=== PATIENT | female | born 1980 | race Caucasian/White ===

== ENCOUNTER 2018-12-23 19:46 | Emergency (ER) | payer MEDICAID, OTHER ==
[~2018-12-23] VITALS: Ht 172.7 cm; Wt 66.3 kg
[2018-12-23 21:13] VITALS: BP 128/76
[2018-12-23] MEDS ORDERED: PROC-8 PO (21:14)
[2018-12-23] MEDS ORDERED: ketorolac trometh inj. 60 MG/2 ML VIAL IM ONE (21:15)
[2018-12-23] MEDS ORDERED: proCHLORperazine 10mg tablet PO ONE (21:15)
== END 2018-12-23 21:29 | disposition home or self-care (01) ==
LOC: ER 19:48 → EDBD 19:48 → ER 21:29
DX: G44.209 Tension-type headache, unspecified, not intractable (principal); F17.200 Nicotine dependence, unspecified, uncomplicated; F15.90 Other stimulant use, unspecified, uncomplicated; Z88.0 Allergy status to penicillin; Z91.040 Latex allergy status; Z79.899 Other long term (current) drug therapy; Z86.711 Personal history of pulmonary embolism; Z98.890 Other specified postprocedural states
CPT/HCPCS: 96372; 99283; J1885; Q0164

== ENCOUNTER 2019-04-15 22:27 | Emergency (ER) | payer MEDICAID ==
[~2019-04-15] VITALS: Ht 172.7 cm; Wt 65.9 kg
[~2019-04-15 22:27] MED LIST: PROC-8 PO
[2019-04-15] MEDS ORDERED: ondansetron/PF 4mg/2ml inj IV ONE (23:00)
[2019-04-15] MEDS ORDERED: morphine 4 MG/ML inj SYRINge IV ONE (23:00)
[2019-04-15 23:02] LABS: BASOPHILS # (AUTO) 0.1 X10'3 (0-0.2); BASOPHILS % (AUTO) 0.9 % (0-1); EOSINOPHILS # (AUTO) 0.4 X10'3 (0-0.9); EOSINOPHILS % (AUTO) 2.7 % (0-6); HEMATOCRIT 38.9 % (35.0-45.0); HEMOGLOBIN 12.8 g/dl (12.0-16.0); LYMPHOCYTES % (AUTO) 41.2 % (21-51); MEAN CORPUSCULAR HEMOGLOBIN 27.6 PG (27.0-31.0); MEAN CORPUSCULAR VOLUME 83.5 FL (78-98); MEAN PLATELET VOLUME 8.9 FL (7.4-10.4); MONOCYTES # (AUTO) 1.5 X10'3 (0-0.9); MONOCYTES % (AUTO) 10.4 % (2-12); NEUTROPHILS # (AUTO) 6.5 X10'3 (1.8-7.7); NEUTROPHILS % (AUTO) 44.8 % (42-75); PLATELET COUNT 319 X10'3 (140-440); RED BLOOD COUNT 4.66 X10'6 (4.20-5.60); RED CELL DISTRIBUTION WIDTH 14.1 % (11.5-14.5); WHITE BLOOD COUNT 14.5 X10'3 (4.5-11.0)
[2019-04-15 23:11] LABS: PARTIAL THROMBOPLASTIN TIME 23 SECONDS (22-32)
[2019-04-15 23:15] LABS: ALANINE AMINOTRANSFERASE 26 U/L (12-78); ALBUMIN 3.5 G/DL (3.4-5.0); ALBUMIN/GLOBULIN RATIO 0.8 (1.1-1.5); ALKALINE PHOSPHATASE 108 IU/L (46-116); ANION GAP 10 (8-16); ASPARTATE AMINO TRANSFERASE 18 U/L (10-37); BILIRUBIN,TOTAL 0.3 MG/DL (0.1-1.0); BLOOD UREA NITROGEN 15 MG/DL (7-18); BUN/CREATININE RATIO 22.4 (6.6-38.0); CALCIUM 9.2 MG/DL (8.5-10.1); CHLORIDE 104 MMOL/L (99-107); CREATININE 0.67 MG/DL (0.40-0.90); GLUCOSE 107 MG/DL (70-104); POTASSIUM 3.9 MMOL/L (3.5-5.1); SODIUM 140 MMOL/L (135-145); TOTAL CARBON DIOXIDE 26.3 MMOL/L (24-32); TOTAL PROTEIN 7.8 G/DL (6.4-8.2); eGFR > 90 ML/MIN
[2019-04-15 23:16] LABS: LIPASE 164 U/L (73-393)
[2019-04-15] MEDS ORDERED: iohexol 350MG/ML 100ml bottle IV ONE (23:21)
[2019-04-16 00:14] VITALS: BP 114/64
== END 2019-04-16 00:20 | disposition home or self-care (01) ==
LOC: ER 22:28
DX: R07.81 Pleurodynia (principal); E27.9 Disorder of adrenal gland, unspecified; F17.200 Nicotine dependence, unspecified, uncomplicated; Z86.711 Personal history of pulmonary embolism; Z90.89 Acquired absence of other organs; Z88.0 Allergy status to penicillin; Z91.040 Latex allergy status
CPT/HCPCS: 36415; 71045; 71275; 80053; 83690; 84484; 85025; 85610; 85730; 93005; 96374; 96375; 99284; J2270; J2405; Q9967

== ENCOUNTER 2019-06-10 16:04 | Emergency (ER) | payer MEDICAID ==
[~2019-06-10] VITALS: Ht 172.7 cm; Wt 68.9 kg
[2019-06-10] MEDS ORDERED: normal saline 1000ML IV soln IVB ONE (16:20)
[2019-06-10 16:25] LABS: CLARITY,URINE SLIGHTLY CLOUDY (Clear); COLOR,URINE STRAW (Yellow); GLUCOSE, URINE NEGATIVE (Neg); KETONES,URINE NEGATIVE (Neg); LEUKOCYTE ESTERASE ,URINE TRACE (Neg); NITRITES, URINE POSITIVE (Neg); OCCULT BLOOD,URINE NEGATIVE (Neg); PH,URINE 6.5 (4.8-8.0); PROTEIN,URINE NEGATIVE (Neg); UA COLLECTION TYPE CLN CATCH MIDSTREAM; URINE HCG NEGATIVE (NEG); UROBILINOGEN,URINE 0.2 E.U/dL (0.2-1.0)
[2019-06-10] MEDS ORDERED: ondansetron/PF 4mg/2ml inj IV ONE (16:25)
[2019-06-10] MEDS ORDERED: morphine 4 MG/ML inj SYRINge IV ONE (16:25)
[2019-06-10 16:30] LABS: BACTERIA,URINE 4+ /HPF (Neg); MUCUS STRANDS NONE SEEN /LPF (Neg); RBC,URINE 0-2 /HPF (0-2); SQUAMOUS EPITHELIAL CELL,UR MODERATE /LPF (FEW); TRANSITIONAL EPI CELLS,URINE FEW /HPF; WBC,URINE 0-4 /HPF (0-4)
[2019-06-10 16:57] LABS: BASOPHILS # (AUTO) 0.2 X10'3 (0-0.2); BASOPHILS % (AUTO) 1.4 % (0-1); EOSINOPHILS # (AUTO) 0.6 X10'3 (0-0.9); EOSINOPHILS % (AUTO) 4.5 % (0-6); HEMATOCRIT 38.4 % (35.0-45.0); HEMOGLOBIN 12.8 g/dl (12.0-16.0); LYMPHOCYTES # (AUTO) 5.4 X10'3 (1.1-4.8); LYMPHOCYTES % (AUTO) 43.9 % (21-51); MEAN CORPUSCULAR HEMOGLOBIN 28.1 PG (27.0-31.0); MEAN CORPUSCULAR HGB CONC 33.2 g/dL (33.0-36.5); MEAN CORPUSCULAR VOLUME 84.7 FL (78-98); MEAN PLATELET VOLUME 8.9 FL (7.4-10.4); MONOCYTES # (AUTO) 1.4 X10'3 (0-0.9); MONOCYTES % (AUTO) 11.6 % (2-12); NEUTROPHILS # (AUTO) 4.7 X10'3 (1.8-7.7); NEUTROPHILS % (AUTO) 38.6 % (42-75); PLATELET COUNT 305 X10'3 (140-440); RED BLOOD COUNT 4.54 X10'6 (4.20-5.60); RED CELL DISTRIBUTION WIDTH 14.2 % (11.5-14.5); WHITE BLOOD COUNT 12.3 X10'3 (4.5-11.0)
--- NOTE | 2019-06-10 16:59 | NUR ---
break note:patient on bed pain to left flank 3/10,visitor at [facility],we will monitor.
--- NOTE | 2019-06-10 17:02 | NUR ---
PATIENT TO CT.
[2019-06-10 17:10] LABS: ALANINE AMINOTRANSFERASE 18 U/L (12-78); ALBUMIN 3.4 G/DL (3.4-5.0); ALBUMIN/GLOBULIN RATIO 0.9 (1.1-1.5); ALKALINE PHOSPHATASE 90 IU/L (46-116); ANION GAP 9 (8-16); ASPARTATE AMINO TRANSFERASE 18 U/L (10-37); BILIRUBIN,TOTAL 0.1 MG/DL (0.1-1.0); BLOOD UREA NITROGEN 8 MG/DL (7-18); BUN/CREATININE RATIO 12.5 (6.6-38.0); CALCIUM 8.8 MG/DL (8.5-10.1); CHLORIDE 106 MMOL/L (99-107); CREATININE 0.64 MG/DL (0.40-0.90); GLUCOSE 101 MG/DL (70-104); LIPASE 145 U/L (73-393); SODIUM 140 MMOL/L (135-145); TOTAL CARBON DIOXIDE 24.8 MMOL/L (24-32); TOTAL PROTEIN 7.2 G/DL (6.4-8.2); eGFR > 90 ML/MIN
[2019-06-10] MEDS ORDERED: CefTRIAXone/D5W-Rocephin 1gm 50 ML IV ONE (17:35)
[2019-06-10] MEDS ORDERED: SULF1TAB49 PO (17:37)
[2019-06-10] MEDS ORDERED: HYDR-3965 PO (17:44)
[2019-06-10 18:34] VITALS: BP 117/74
== END 2019-06-10 18:36 | disposition home or self-care (01) ==
LOC: ER 16:05
DX: N39.0 Urinary tract infection, site not specified (principal); Z98.890 Other specified postprocedural states; Z86.711 Personal history of pulmonary embolism; Z88.0 Allergy status to penicillin; Z91.040 Latex allergy status; Z79.2 Long term (current) use of antibiotics
CPT/HCPCS: 36415; 74176; 80053; 81001; 81025; 83690; 84145; 85025; 87077; 87088; 87186; 96365; 96375; 99284; J0696; J2270; J2405; J7030

== ENCOUNTER 2019-07-21 20:32 | Emergency (ER) | payer MEDICAID ==
[~2019-07-21] VITALS: Ht 172.7 cm; Wt 67.3 kg
[2019-07-21 20:59] LABS: URINE HCG NEGATIVE (NEG)
[2019-07-21 21:02] LABS: CLARITY,URINE SLIGHTLY CLOUDY (Clear); COLOR,URINE YELLOW (Yellow); GLUCOSE, URINE NEGATIVE (Neg); KETONES,URINE NEGATIVE (Neg); LEUKOCYTE ESTERASE ,URINE SMALL (Neg); NITRITES, URINE NEGATIVE (Neg); OCCULT BLOOD,URINE TRACE-INTACT (Neg); PROTEIN,URINE 30 mg/dl (Neg); UROBILINOGEN,URINE 0.2 E.U/dL (0.2-1.0)
[2019-07-21 21:09] LABS: UA COLLECTION TYPE CLN CATCH MIDSTREAM
[2019-07-21 21:10] LABS: BACTERIA,URINE FEW /HPF (Neg); MUCUS STRANDS MANY /LPF (Neg); RBC,URINE 0-2 /HPF (0-2); SQUAMOUS EPITHELIAL CELL,UR FEW /LPF (FEW)
--- NOTE | 2019-07-21 22:05 | NUR ---
Pt ready for Pelvic exam with provider
[2019-07-21] MEDS ORDERED: PHEN-824 PO (23:18)
[2019-07-21] MEDS ORDERED: CEPH250T PO (23:18)
[2019-07-21] MEDS ORDERED: MICO45CR11 VG (23:19)
[2019-07-21] MEDS ORDERED: phenazopyridine 100mg tablet PO ONE (23:20)
[2019-07-21] MEDS ORDERED: cephalexin 250mg capsule PO ONE (23:20)
[2019-07-21 23:31] VITALS: BP 129/64
== END 2019-07-21 23:30 | disposition home or self-care (01) ==
LOC: ER 20:33
DX: N39.0 Urinary tract infection, site not specified (principal); Z87.01 Personal history of pneumonia (recurrent); Z86.711 Personal history of pulmonary embolism; Z87.442 Personal history of urinary calculi; Z90.89 Acquired absence of other organs; Z88.0 Allergy status to penicillin; Z91.040 Latex allergy status
CPT/HCPCS: 36415; 81001; 81025; 87088; 87210; 87491; 99283

== ENCOUNTER 2019-08-31 12:36 | Day surgery (SDC) | payer MEDICAID ==
[2019-08-28 16:00] LABS: BASOPHILS # (AUTO) 0.1 X10'3 (0-0.2); BASOPHILS % (AUTO) 1.1 % (0-1); EOSINOPHILS # (AUTO) 0.3 X10'3 (0-0.9); EOSINOPHILS % (AUTO) 2.7 % (0-6); LYMPHOCYTES # (AUTO) 4.3 X10'3 (1.1-4.8); MEAN CORPUSCULAR HEMOGLOBIN 29.5 PG (27.0-31.0); MEAN CORPUSCULAR HGB CONC 34.1 g/dL (33.0-36.5); MEAN CORPUSCULAR VOLUME 86.5 FL (78-98); MONOCYTES # (AUTO) 0.9 X10'3 (0-0.9); MONOCYTES % (AUTO) 9.5 % (2-12); NEUTROPHILS # (AUTO) 3.8 X10'3 (1.8-7.7); NEUTROPHILS % (AUTO) 40.7 % (42-75); PRE OP HEMATOCRIT 39.2 % (35.0-45.0); PRE OP HEMOGLOBIN 13.4 g/dL (12.0-16.0); PRE OP PLATELET COUNT 320 X10'3 (140-440); RED BLOOD COUNT 4.53 X10'6 (4.20-5.60); RED CELL DISTRIBUTION WIDTH 13.6 % (11.5-14.5)
[2019-08-28 16:02] LABS: CLARITY,URINE SLIGHTLY CLOUDY (Clear); COLOR,URINE YELLOW (Yellow); GLUCOSE, URINE NEGATIVE (Neg); KETONES,URINE NEGATIVE (Neg); LEUKOCYTE ESTERASE ,URINE SMALL (Neg); NITRITES, URINE POSITIVE (Neg); OCCULT BLOOD,URINE SMALL (Neg); PROTEIN,URINE NEGATIVE (Neg); UROBILINOGEN,URINE 0.2 E.U/dL (0.2-1.0)
[2019-08-28 16:15] LABS: ALBUMIN 3.9 G/DL (3.4-5.0); ALBUMIN/GLOBULIN RATIO 1.1 (1.1-1.5); ALKALINE PHOSPHATASE 87 IU/L (46-116); BLOOD UREA NITROGEN 6 MG/DL (7-18); BUN/CREATININE RATIO 9.4 (6.6-38.0); CALCIUM 8.9 MG/DL (8.5-10.1); CHLORIDE 105 MMOL/L (99-107); CREATININE 0.64 MG/DL (0.40-0.90); PRE OP ALT 21 U/L (30-65); PRE OP ANION GAP 10 (8-16); PRE OP AST 18 U/L (10-37); PRE OP BILIRUB, TOTAL 0.3 MG/DL (0.0-1.0); PRE OP GLUCOSE 114 MG/DL (70-104); PRE OP POTASSIUM 3.6 MMOL/L (3.4-5.1); PRE OP SODIUM 140 MMOL/L (135-145); TOTAL CARBON DIOXIDE 25.5 MMOL/L (24-32); TOTAL PROTEIN 7.5 G/DL (6.4-8.2); eGFR > 90 ML/MIN
[2019-08-28 16:44] LABS: HCG SERUM QL NEGATIVE
[2019-08-28 16:45] LABS: UA COLLECTION TYPE NON-SPECIFIED
[2019-08-28 16:46] LABS: BACTERIA,URINE 4+ /HPF (Neg); RBC,URINE 0-2 /HPF (0-2); SQUAMOUS EPITHELIAL CELL,UR FEW /LPF (FEW); WBC CLUMPS,URINE FEW /HPF (NEGATIVE); WBC,URINE 20-30 /HPF (0-4)
[~2019-08-31] VITALS: Ht 172.7 cm; Wt 66.0 kg
[2019-08-31] VITALS (8 sets, daily range): BP systolic 109–149; BP diastolic 61–90
[~2019-08-31 12:36] MED LIST changes: +NO HOME MEDS; -PROC-8 PO; +clindamycin-Cleocin 900mg/D5W 50 ML IV ONE; +famotidine 20mg tablet PO ONE; +ringers solution, lacted 1,000 ML IV SCH
[2019-08-31] MEDS ORDERED: gentamicin inj 325 MG in normal saline 100ml IV soln 91.875 ML IV ONE (14:00)
[2019-08-31] MEDS ORDERED: BUPIVAcaine/PF 2.5 mg/ml (0.25%) 30ml vial ONE (15:13)
[2019-08-31] MEDS ORDERED: BUPIVAcaine/PF 2.5mg/ml (0.25%) 10ml vial ONE (15:14)
[2019-08-31] MEDS ORDERED: ringers solution, lacted 1,000 ML IV SCH (15:29)
[2019-08-31] MEDS ORDERED: morphine 4 MG/ML inj SYRINge IV PRN (15:30)
[2019-08-31] MEDS ORDERED: acetaminophen 1,000mg/100ml IV 100 ML IV PRN (15:30)
[2019-08-31] MEDS ORDERED: morphine 2 MG/ML inj. syringe IV PRN (15:30)
[2019-08-31] MEDS ORDERED: meperidine/PF 25mg/ml syringe IV PRN ×3 (15:30)
[2019-08-31] MEDS ORDERED: ondansetron/PF 4mg/2ml inj IV PRN (15:30)
[2019-08-31] MEDS ORDERED: proCHLORperazine 10 MG/2 ml inj IV PRN (15:30)
[2019-08-31] MEDS ORDERED: midazolam 2 mg/2 ml injection ONE (16:17)
[2019-08-31] MEDS ORDERED: diphenhydrAMINE 50 mg/ml inj ONE (16:27)
[2019-08-31] MEDS ORDERED: propofol inj 20 ML IV ONE (16:27)
[2019-08-31] MEDS ORDERED: LIDOcaine 2% (20mg/ml) 5ml vial ONE (16:27)
[2019-08-31] MEDS ORDERED: glycopyrrolate 0.2mg/ml inj ONE ×2 (16:27→16:49)
[2019-08-31] MEDS ORDERED: neostigmine methylsulfate 1 MG/ML 10ml vial ONE ×2 (16:27→16:49)
[2019-08-31] MEDS ORDERED: rocuronium 10mg/ml inj IV ONE (16:27)
[2019-08-31] MEDS ORDERED: fentaNYL/PF 50MCG/1 ML 2ML syringe ONE (16:27)
--- NOTE | 2019-08-31 16:59 | NUR ---
Received from OR via bettye, accompanied by Anesthesiologist IDANIA and report given by Anesthesiolgist. Lap sites x2 open to air derma maradiaga CDI. 20G right AC LR IVF at 100cc/hr. VS WNL and mask to 10L sats 98%. Maria Del Carmen pad in place scant drainage. Will monitor closely.
--- NOTE | 2019-08-31 18:09 | NUR ---
Pt states 5/10 is tolerable for her and she would prefer not to receive any more IV pain meds and go home to be more comfortable and start PO pain meds. Pt ambulated and tolerated fluids, up getting dressed at this time.
--- NOTE | 2019-08-31 18:19 | NUR ---
All belongings returned to patient.
--- NOTE | 2019-08-31 18:19 | NUR ---
Pt discharged to vehicle by wheelchair without incident. Pt alert and oriented, she and S/O verbalized understanding of discharge instructions. IV dc'd, abd sites remain CDI and open to air. Pt already has pain medications at home and knows to follow per MD orders.
== END 2019-08-31 18:19 | disposition home or self-care (01) ==
LOC: PAS 12:36
PROVIDERS: ATTEND Obstetrics & Gynecology Obstetrics
DX: Z30.2 Encounter for sterilization (principal); F17.210 Nicotine dependence, cigarettes, uncomplicated; Z90.81 Acquired absence of spleen; Z98.890 Other specified postprocedural states; Z88.0 Allergy status to penicillin; Z87.01 Personal history of pneumonia (recurrent); Z87.442 Personal history of urinary calculi; Z91.040 Latex allergy status; Z79.899 Other long term (current) drug therapy
CPT/HCPCS: 36415; 58671; 71046; 80053; 81001; 84703; 85025; 86885; 86900; 86901; 87077; 87088; 87186; A4264; J0131; J1200; J1580; J2001; J2175; J2250; J2270; J2704; J2710; J3010; J3490; A4618; A7000; J7120

== ENCOUNTER 2020-03-01 20:03 | Emergency (ER) | payer MEDICAID ==
[~2020-03-01] VITALS: Ht 172.7 cm; Wt 78.0 kg
[~2020-03-01 20:03] MED LIST changes: -clindamycin-Cleocin 900mg/D5W 50 ML IV ONE; -famotidine 20mg tablet PO ONE; -ringers solution, lacted 1,000 ML IV SCH
[2020-03-01 20:27] LABS: CLARITY,URINE CLEAR (Clear); COLOR,URINE YELLOW (Yellow); GLUCOSE, URINE NEGATIVE (Neg); KETONES,URINE NEGATIVE (Neg); LEUKOCYTE ESTERASE ,URINE NEGATIVE (Neg); NITRITES, URINE NEGATIVE (Neg); OCCULT BLOOD,URINE TRACE-INTACT (Neg); PROTEIN,URINE NEGATIVE (Neg); UROBILINOGEN,URINE 0.2 E.U/dL (0.2-1.0)
[2020-03-01 20:34] LABS: BACTERIA,URINE FEW /HPF (Neg); RBC,URINE 0-2 /HPF (0-2); SQUAMOUS EPITHELIAL CELL,UR FEW /LPF (FEW); UA COLLECTION TYPE CLN CATCH MIDSTREAM; WBC,URINE 0-4 /HPF (0-4)
[2020-03-01 21:02] LABS: BASOPHILS # (AUTO) 0.2 X10'3 (0-0.2); BASOPHILS % (AUTO) 1.3 % (0-1); EOSINOPHILS # (AUTO) 0.3 X10'3 (0-0.9); EOSINOPHILS % (AUTO) 2.6 % (0-6); HEMATOCRIT 38.2 % (35.0-45.0); HEMOGLOBIN 12.8 g/dl (12.0-16.0); LYMPHOCYTES # (AUTO) 4.7 X10'3 (1.1-4.8); LYMPHOCYTES % (AUTO) 35.5 % (21-51); MEAN CORPUSCULAR HEMOGLOBIN 29.7 PG (27.0-31.0); MEAN CORPUSCULAR HGB CONC 33.5 g/dL (33.0-36.5); MEAN CORPUSCULAR VOLUME 88.7 FL (78-98); MEAN PLATELET VOLUME 9.1 FL (7.4-10.4); MONOCYTES # (AUTO) 1.2 X10'3 (0-0.9); MONOCYTES % (AUTO) 9.4 % (2-12); NEUTROPHILS # (AUTO) 6.7 X10'3 (1.8-7.7); NEUTROPHILS % (AUTO) 51.2 % (42-75); PLATELET COUNT 378 X10'3 (140-440); RED BLOOD COUNT 4.31 X10'6 (4.20-5.60); RED CELL DISTRIBUTION WIDTH 13.2 % (11.5-14.5); WHITE BLOOD COUNT 13.1 X10'3 (4.5-11.0)
[2020-03-01 21:16] LABS: ALANINE AMINOTRANSFERASE 21 U/L (12-78); ALBUMIN 3.7 G/DL (3.4-5.0); ALBUMIN/GLOBULIN RATIO 0.9 (1.1-1.5); ALKALINE PHOSPHATASE 70 IU/L (46-116); ANION GAP 9 (8-16); ASPARTATE AMINO TRANSFERASE 16 U/L (10-37); BILIRUBIN,TOTAL 0.2 MG/DL (0.1-1.0); BLOOD UREA NITROGEN 7 MG/DL (7-18); BUN/CREATININE RATIO 7.3 (6.6-38.0); CALCIUM 8.7 MG/DL (8.5-10.1); CHLORIDE 104 MMOL/L (99-107); CREATININE 0.96 MG/DL (0.40-0.90); GLUCOSE 88 MG/DL (70-104); LIPASE 117 U/L (73-393); POTASSIUM 3.6 MMOL/L (3.5-5.1); SODIUM 140 MMOL/L (135-145); TOTAL CARBON DIOXIDE 27.5 MMOL/L (24-32); TOTAL PROTEIN 7.7 G/DL (6.4-8.2); eGFR 65 ML/MIN
[2020-03-01] MEDS ORDERED: ketorolac tromethamine 15mg/ml inj. IM ONE (22:00)
--- NOTE | 2020-03-01 22:48 | NUR ---
[facility] IS ON THEIR WAY IN
[2020-03-01] MEDS ORDERED: FLO0.4C PO (23:51)
[2020-03-01] MEDS ORDERED: IBUP-1986 PO (23:51)
[2020-03-01] MEDS ORDERED: ONDA4TAB6 PO (23:51)
[2020-03-01 23:58] VITALS: BP 124/70
== END 2020-03-02 00:02 | disposition home or self-care (01) ==
LOC: ER 20:04
DX: N23 Unspecified renal colic (principal); R31.9 Hematuria, unspecified; M54.89 Other dorsalgia; R11.0 Nausea; Z87.01 Personal history of pneumonia (recurrent); Z86.711 Personal history of pulmonary embolism; Z87.442 Personal history of urinary calculi; Z87.440 Personal history of urinary (tract) infections; Z98.890 Other specified postprocedural states; Z88.0 Allergy status to penicillin; Z91.040 Latex allergy status; Z79.899 Other long term (current) drug therapy
CPT/HCPCS: 36415; 76775; 80053; 81001; 83690; 85025; 96372; 99284; J1885

== ENCOUNTER 2020-08-18 15:38 | Emergency (ER) | payer MEDICAID ==
[~2020-08-18] VITALS: Ht 172.7 cm; Wt 80.9 kg
[~2020-08-18 15:38] MED LIST changes: +IBUP-1986 PO; +ONDA4TAB6 PO
[2020-08-18 15:43] VITALS: BP 148/84
== END 2020-08-18 17:39 | disposition home or self-care (01) ==
LOC: ER 15:38
DX: S61.216A Laceration without foreign body of right little finger without damage to nail, initial encounter (principal); Z88.0 Allergy status to penicillin; Z91.040 Latex allergy status; Z79.899 Other long term (current) drug therapy; Z87.01 Personal history of pneumonia (recurrent); Z86.711 Personal history of pulmonary embolism; Z90.49 Acquired absence of other specified parts of digestive tract; Z87.440 Personal history of urinary (tract) infections; Z87.442 Personal history of urinary calculi; W26.0XXA Contact with knife, initial encounter; Y93.89 Activity, other specified; Y92.89 Other specified places as the place of occurrence of the external cause; Y99.8 Other external cause status
CPT/HCPCS: 12001; 99282

== ENCOUNTER 2020-11-11 19:57 | Emergency (ER) | payer MEDICAID ==
[~2020-11-11] VITALS: Ht 172.7 cm; Wt 80.9 kg
[2020-11-11 20:15] VITALS: BP 141/90
[2020-11-11 20:36] LABS: BASOPHILS # (AUTO) 0.2 X10'3 (0-0.2); BASOPHILS % (AUTO) 1.4 % (0-1); EOSINOPHILS # (AUTO) 0.4 X10'3 (0-0.9); EOSINOPHILS % (AUTO) 2.8 % (0-6); HEMATOCRIT 40.2 % (35.0-45.0); HEMOGLOBIN 13.4 g/dl (12.0-16.0); LYMPHOCYTES # (AUTO) 4.8 X10'3 (1.1-4.8); MEAN CORPUSCULAR HEMOGLOBIN 30.3 PG (27.0-31.0); MEAN CORPUSCULAR HGB CONC 33.4 g/dL (33.0-36.5); MEAN PLATELET VOLUME 8.7 FL (7.4-10.4); MONOCYTES # (AUTO) 1.1 X10'3 (0-0.9); NEUTROPHILS # (AUTO) 8.5 X10'3 (1.8-7.7); NEUTROPHILS % (AUTO) 56.8 % (42-75); PLATELET COUNT 407 X10'3 (140-440); RED BLOOD COUNT 4.41 X10'6 (4.20-5.60); RED CELL DISTRIBUTION WIDTH 13.7 % (11.5-14.5)
[2020-11-11 20:39] LABS: CLARITY,URINE CLEAR (Clear); COLOR,URINE YELLOW (Yellow); GLUCOSE, URINE NEGATIVE (Neg); KETONES,URINE NEGATIVE (Neg); LEUKOCYTE ESTERASE ,URINE TRACE (Neg); NITRITES, URINE NEGATIVE (Neg); OCCULT BLOOD,URINE TRACE-INTACT (Neg); PROTEIN,URINE NEGATIVE (Neg); UROBILINOGEN,URINE 0.2 E.U/dL (0.2-1.0)
[2020-11-11 20:40] LABS: UA COLLECTION TYPE CLN CATCH MIDSTREAM; URINE HCG NEGATIVE (NEG)
[2020-11-11 20:48] LABS: ALANINE AMINOTRANSFERASE 14 U/L (12-78); ALBUMIN 3.8 G/DL (3.4-5.0); ALBUMIN/GLOBULIN RATIO 0.9 (1.1-1.5); ALKALINE PHOSPHATASE 72 IU/L (46-116); ANION GAP 8 (8-16); ASPARTATE AMINO TRANSFERASE 13 U/L (10-37); BILIRUBIN,TOTAL 0.2 MG/DL (0.1-1.0); BLOOD UREA NITROGEN 10 MG/DL (7-18); CALCIUM 8.9 MG/DL (8.5-10.1); CHLORIDE 104 MMOL/L (99-107); CREATININE 0.83 MG/DL (0.40-0.90); GLUCOSE 107 MG/DL (70-104); LIPASE 147 U/L (73-393); POTASSIUM 3.3 MMOL/L (3.5-5.1); SODIUM 140 MMOL/L (135-145); TOTAL CARBON DIOXIDE 28.1 MMOL/L (24-32); TOTAL PROTEIN 8.1 G/DL (6.4-8.2); eGFR 77 ML/MIN
[2020-11-11 20:50] LABS: BACTERIA,URINE FEW /HPF (Neg); RBC,URINE 0-2 /HPF (0-2); SQUAMOUS EPITHELIAL CELL,UR MANY /LPF (FEW); WBC,URINE 0-4 /HPF (0-4)
[2020-11-11] MEDS ORDERED: LIDOcaine Viscous 15ml cup MM ONE (21:40)
[2020-11-11] MEDS ORDERED: mag hydrox/Alum hydrox/simeth 30ml oral suspension PO ONE (21:40)
[2020-11-11] MEDS ORDERED: diphenhydrAMINE 25 MG/10 ML UD oral solution PO ONE (21:40)
[2020-11-11] MEDS ORDERED: ondansetron 4mg rapidly disintigrating tab PO ONE (21:40)
[2020-11-11] MEDS ORDERED: ONDA4TAB12 PO (23:11)
[2020-11-11] MEDS ORDERED: FAMO40TA73 PO (23:11)
== END 2020-11-11 23:20 | disposition home or self-care (01) ==
LOC: ER 19:58
DX: R10.11 Right upper quadrant pain (principal); R11.0 Nausea; Z87.01 Personal history of pneumonia (recurrent); Z86.711 Personal history of pulmonary embolism; Z87.442 Personal history of urinary calculi; Z87.440 Personal history of urinary (tract) infections; Z98.890 Other specified postprocedural states; Z88.0 Allergy status to penicillin; Z91.040 Latex allergy status; Z79.899 Other long term (current) drug therapy
CPT/HCPCS: 36415; 76700; 80053; 81001; 81025; 83690; 85025; 99284; Q0163

== ENCOUNTER 2021-01-28 11:25 | Emergency (ER) | payer MEDICAID ==
[~2021-01-28] VITALS: Ht 172.7 cm; Wt 77.3 kg
[~2021-01-28 11:25] MED LIST changes: +FAMO40TA73 PO; +ONDA4TAB12 PO
[2021-01-28 11:35] VITALS: BP 124/78
[2021-01-28] MEDS ORDERED: NAPR-56 PO (13:19)
== END 2021-01-28 13:37 | disposition home or self-care (01) ==
LOC: ER 11:26
DX: M25.562 Pain in left knee (principal); Z87.01 Personal history of pneumonia (recurrent); Z86.711 Personal history of pulmonary embolism; Z87.442 Personal history of urinary calculi; Z87.440 Personal history of urinary (tract) infections; Z98.890 Other specified postprocedural states; Z88.0 Allergy status to penicillin; Z91.040 Latex allergy status; Z79.899 Other long term (current) drug therapy
CPT/HCPCS: 73564; 99283

== ENCOUNTER 2021-02-08 11:30 | Emergency (ER) | payer MEDICAID ==
[~2021-02-08] VITALS: Ht 172.7 cm; Wt 74.1 kg
[~2021-02-08 11:30] MED LIST changes: +NAPR-56 PO
[2021-02-08 12:03] VITALS: BP 117/82
[2021-02-08] MEDS ORDERED: ketorolac trometh. 30mg/ml inj. IM ONE (13:10)
[2021-02-08] MEDS ORDERED: METH4TAB81 PO (13:13)
== END 2021-02-08 15:02 | disposition home or self-care (01) ==
LOC: ER 11:31
DX: M25.562 Pain in left knee (principal); Z87.442 Personal history of urinary calculi; Z86.711 Personal history of pulmonary embolism; Z98.890 Other specified postprocedural states; Z88.0 Allergy status to penicillin; Z91.040 Latex allergy status; Z79.899 Other long term (current) drug therapy
CPT/HCPCS: 29505; 73564; 96372; 99283; J1885

== ENCOUNTER 2021-08-11 13:11 | Emergency (ER) | payer MEDICAID ==
[~2021-08-11] VITALS: Ht 172.7 cm; Wt 73.6 kg
[~2021-08-11 13:11] MED LIST changes: +METH4TAB81 PO; -NAPR-56 PO
[2021-08-11 13:29] VITALS: BP 149/85
[2021-08-11 14:01] LABS: LYMPHOCYTES # (AUTO) 2.3 X10'3 (1.1-4.8); NEUTROPHILS # (AUTO) 0.9 X10'3 (1.8-7.7); WHITE BLOOD COUNT 3.9 X10'3 (4.5-11.0)
[2021-08-11 14:03] LABS: BASOPHILS % (AUTO) 1.1 % (0-1); EOSINOPHILS % (AUTO) 1.3 % (0-6); HEMATOCRIT 43.9 % (35.0-45.0); HEMOGLOBIN 14.7 g/dl (12.0-16.0); LYMPHOCYTES % (AUTO) 58.3 % (21-51); MEAN CORPUSCULAR HEMOGLOBIN 30.4 PG (27.0-31.0); MEAN CORPUSCULAR HGB CONC 33.5 g/dL (33.0-36.5); MEAN CORPUSCULAR VOLUME 90.7 FL (78-98); MONOCYTES # (AUTO) 0.6 X10'3 (0-0.9); MONOCYTES % (AUTO) 15.8 % (2-12); NEUTROPHILS % (AUTO) 23.5 % (42-75); PLATELET COUNT 302 X10'3 (140-440); RED BLOOD COUNT 4.84 X10'6 (4.20-5.60); RED CELL DISTRIBUTION WIDTH 13.3 % (11.5-14.5)
[2021-08-11 14:11] LABS: D-DIMER 0.24 MG/L FEU (0-0.50)
[2021-08-11 14:15] LABS: ALANINE AMINOTRANSFERASE 20 U/L (12-78); ALBUMIN 4.1 G/DL (3.4-5.0); ALBUMIN/GLOBULIN RATIO 1.1 (1.1-1.5); ALKALINE PHOSPHATASE 62 IU/L (46-116); ANION GAP 8 (8-16); ASPARTATE AMINO TRANSFERASE 19 U/L (10-37); BILIRUBIN,TOTAL 0.2 MG/DL (0.1-1.0); BLOOD UREA NITROGEN 8 MG/DL (7-18); CALCIUM 9.3 MG/DL (8.5-10.1); CHLORIDE 104 MMOL/L (99-107); CREATININE 0.73 MG/DL (0.40-0.90); GLUCOSE 91 MG/DL (70-104); POTASSIUM 4.3 MMOL/L (3.5-5.1); SODIUM 139 MMOL/L (135-145); TOTAL CARBON DIOXIDE 27.2 MMOL/L (24-32); eGFR 89 ML/MIN
[2021-08-11] MEDS ORDERED: PRED20TA PO (14:33)
[2021-08-11] MEDS ORDERED: ALBU6.7H9 INH (14:33)
[2021-08-11] MEDS ORDERED: BUDE180A INH (14:33)
[2021-08-11 14:41] LABS: LARGE PLATELETS MODERATE; PLATELET ESTIMATE NORMAL; TOTAL CELLS COUNTED 100
== END 2021-08-11 14:40 | disposition home or self-care (01) ==
LOC: ER 13:12
DX: U07.1 COVID-19 (principal); R07.81 Pleurodynia; R06.02 Shortness of breath; R51.9 Headache, unspecified; F19.90 Other psychoactive substance use, unspecified, uncomplicated; Z87.01 Personal history of pneumonia (recurrent); Z86.711 Personal history of pulmonary embolism; Z87.442 Personal history of urinary calculi; Z87.440 Personal history of urinary (tract) infections; Z98.890 Other specified postprocedural states; Z88.0 Allergy status to penicillin; Z91.040 Latex allergy status; Z79.899 Other long term (current) drug therapy
CPT/HCPCS: 71045; 80053; 85007; 85025; 85379; 93005; 99285

== ENCOUNTER 2023-01-09 18:09 | Emergency (ER) | payer MEDICAID ==
[~2023-01-09] VITALS: Ht 172.7 cm; Wt 75.0 kg
[~2023-01-09 18:09] MED LIST changes: +ALBU6.7H14 INH; +BUDE180A INH
[2023-01-09 18:15] VITALS: BP 135/81
[2023-01-09] MEDS ORDERED: ketorolac tromethamine 15mg/ml inj. IM ONE (20:00)
[2023-01-09] MEDS ORDERED: HYDROcodone/acetaminophen 5mg/325mg tablet PO ONE (20:00)
[2023-01-09] MEDS ORDERED: cyclobenzaprine 10mg tablet PO ONE (21:40)
[2023-01-09] MEDS ORDERED: CYCL-1 PO (21:40)
== END 2023-01-09 21:50 | disposition home or self-care (01) ==
LOC: ER 18:10
DX: S39.012A Strain of muscle, fascia and tendon of lower back, initial encounter (principal); Z87.442 Personal history of urinary calculi; Z98.890 Other specified postprocedural states; Z88.0 Allergy status to penicillin; Z91.040 Latex allergy status; Z79.899 Other long term (current) drug therapy; X58.XXXA Exposure to other specified factors, initial encounter; Y93.89 Activity, other specified; Y92.89 Other specified places as the place of occurrence of the external cause; Y99.8 Other external cause status
CPT/HCPCS: 72100; 72170; 96372; 99284; J1885

== ENCOUNTER 2024-01-22 09:45 | Inpatient (IN) | payer MEDICAID ==
[~2024-01-22] VITALS: Ht 172.7 cm; Wt 77.4 kg
[~2024-01-22 09:45] MED LIST changes: +CYCL-1 PO; +ONDA-243 PO; -ONDA4TAB12 PO
[2024-01-22 10:05] LABS: BILIRUBIN,URINE NEGATIVE (Neg); COLOR,URINE YELLOW (Yellow); GLUCOSE, URINE NEGATIVE (Neg); KETONES,URINE NEGATIVE (Neg); LEUKOCYTE ESTERASE ,URINE NEGATIVE (Neg); NITRITES, URINE NEGATIVE (Neg); OCCULT BLOOD,URINE TRACE-INTACT (Neg); PROTEIN,URINE NEGATIVE (Neg); URINE HCG NEGATIVE (NEG); UROBILINOGEN,URINE 0.2 E.U/dL (0.2-1.0)
[2024-01-22 10:10] LABS: CLARITY,URINE SLIGHTLY CLOUDY (Clear); UA COLLECTION TYPE CLN CATCH MIDSTREAM
[2024-01-22 10:11] LABS: MUCUS STRANDS FEW /LPF (Neg); SQUAMOUS EPITHELIAL CELL,UR MANY /LPF (FEW)
[2024-01-22 10:15] LABS: BACTERIA,URINE 1+ /HPF (Neg); RBC,URINE 0-2 /HPF (0-2); WBC,URINE 0-4 /HPF (0-4); YEAST FEW /HPF (NEGATIVE)
[2024-01-22] MEDS: LIDOcaine 2% Viscous 15ml cup MM ONE (10:59)
[2024-01-22] MEDS: mag hydrox/Alum hydrox/simeth 30ml oral suspension PO ONE (10:59)
[2024-01-22 11:10] LABS: BASOPHILS # (AUTO) 0.1 X10'3 (0-0.2); EOSINOPHILS # (AUTO) 0.2 X10'3 (0-0.9); HEMOGLOBIN 13.3 g/dl (12.0-16.0); MEAN PLATELET VOLUME 9.4 FL (7.4-10.4); WHITE BLOOD COUNT 10.7 X10'3 (4.5-11.0)
[2024-01-22 11:14] LABS: BASOPHILS % (AUTO) 1.4 % (0-1); EOSINOPHILS % (AUTO) 1.6 % (0-6); HEMATOCRIT 39.1 % (35.0-45.0); LYMPHOCYTES # (AUTO) 3.5 X10'3 (1.1-4.8); LYMPHOCYTES % (AUTO) 32.6 % (21-51); MEAN CORPUSCULAR HEMOGLOBIN 30.8 PG (27.0-31.0); MEAN CORPUSCULAR HGB CONC 34.1 g/dL (33.0-36.5); MEAN CORPUSCULAR VOLUME 90.2 FL (78-98); MONOCYTES # (AUTO) 0.9 X10'3 (0-0.9); MONOCYTES % (AUTO) 8.8 % (2-12); NEUTROPHILS % (AUTO) 55.6 % (42-75); PLATELET COUNT 340 X10'3 (140-440); RED BLOOD COUNT 4.33 X10'6 (4.20-5.60); RED CELL DISTRIBUTION WIDTH 12.8 % (11.5-14.5)
[2024-01-22 11:30] LABS: ALANINE AMINOTRANSFERASE 28 U/L (12-78); ALBUMIN 3.6 G/DL (3.4-5.0); ALBUMIN/GLOBULIN RATIO 0.9 (1.1-1.5); ALKALINE PHOSPHATASE 64 IU/L (46-116); ANION GAP 8 (8-16); ASPARTATE AMINO TRANSFERASE 16 U/L (10-37); BILIRUBIN,TOTAL 0.5 MG/DL (0.1-1.0); BLOOD UREA NITROGEN 5 MG/DL (7-18); BUN/CREATININE RATIO 5.9 (10.0-20.0); CHLORIDE 103 MMOL/L (99-107); CREATININE 0.85 MG/DL (0.40-0.90); GLUCOSE 102 MG/DL (70-104); LIPASE 31 U/L (16-77); POTASSIUM 4.2 MMOL/L (3.5-5.1); SODIUM 138 MMOL/L (135-145); TOTAL CARBON DIOXIDE 26.9 MMOL/L (24-32); TOTAL PROTEIN 7.7 G/DL (6.4-8.2); eCRCL 88 ML/MIN; eGFR 74 ML/MIN
[2024-01-22] MEDS ORDERED: HYDROcodone/acetaminophen 5mg/325mg tablet PO PRN (13:30)
[2024-01-22] MEDS ORDERED: acetaminophen 325mg tablet PO PRN (13:30)
[2024-01-22] MEDS ORDERED: magnesium sulf-water 2g/50mL 50 ML IV PRN (13:30)
[2024-01-22] MEDS ORDERED: magnesium sulf-water 4G/100mL 100 ML IV PRN (13:30)
[2024-01-22] MEDS ORDERED: mag hydrox/Alum hydrox/simeth 30ml oral suspension PO PRN (13:30)
[2024-01-22] MEDS ORDERED: potassium Cl 20 mEq SR tablet PO PRN ×2 (13:30)
[2024-01-22] MEDS ORDERED: magnesium Cl slow-release 64mg tablet PO PRN (13:30)
[2024-01-22] MEDS ORDERED: potassium Cl 40MEQ/1/2NS 520ml 520 ML IV PRN (13:30)
[2024-01-22] MEDS ORDERED: morphine 2 MG/ML inj. syringe IV PRN (13:30)
[2024-01-22] MEDS ORDERED: magnesium hydroxide 30ml (MOM) UD suspension PO PRN (13:30)
[2024-01-22] MEDS: HYDROcodone/acetaminophen 10/325mg tab PO PRN (14:05)
[2024-01-22] MEDS: normal saline 1000ml 1,000 ML IV SCH (14:06)
[2024-01-22 18:00] VITALS: BP 135/66; PULSE 68; RESP 20; TEMP 97.9; O2SAT 97
[2024-01-22] MEDS: K and/or MAG REPLACEMENT MC SCH (19:15)
[2024-01-22] MEDS: docusate sod 100mg capsule PO SCH (19:16)
[2024-01-22 20:00] VITALS: RESP 20; O2SAT 97
[2024-01-22] MEDS: morphine 2 MG/ML inj. syringe IV PRN (21:36)
[2024-01-22] MEDS: heparin, porcine 5000 units/ml vial SQ SCH (21:37)
[2024-01-22] MEDS: diatr meglu/diatrizoate 30ml oral sol.-(3 dose) bottle PO SCH (21:37)
[2024-01-22 22:00] VITALS: BP 120/64; PULSE 71; RESP 16; TEMP 97.6; O2SAT 98
[2024-01-23] VITALS (21 sets, daily range): BP systolic 116–138; BP diastolic 67–88; PULSE 76–95; RESP 11–25; TEMP 97–98; O2SAT 92–100
[2024-01-23] MEDS: piperacillin/tazo 3.375gm/50ml 50 ML IV SCH (00:40)
[2024-01-23 05:47] LABS: BASOPHILS # (AUTO) 0.1 X10'3 (0-0.2); BASOPHILS % (AUTO) 1.4 % (0-1); EOSINOPHILS # (AUTO) 0.3 X10'3 (0-0.9); EOSINOPHILS % (AUTO) 3.3 % (0-6); HEMATOCRIT 38.1 % (35.0-45.0); HEMOGLOBIN 12.9 g/dl (12.0-16.0); LYMPHOCYTES # (AUTO) 4.8 X10'3 (1.1-4.8); MEAN CORPUSCULAR HEMOGLOBIN 30.7 PG (27.0-31.0); MEAN CORPUSCULAR HGB CONC 33.9 g/dL (33.0-36.5); MEAN CORPUSCULAR VOLUME 90.7 FL (78-98); MONOCYTES % (AUTO) 10.4 % (2-12); NEUTROPHILS # (AUTO) 3.5 X10'3 (1.8-7.7); NEUTROPHILS % (AUTO) 35.9 % (42-75); PLATELET COUNT 306 X10'3 (140-440); RED BLOOD COUNT 4.19 X10'6 (4.20-5.60); RED CELL DISTRIBUTION WIDTH 12.9 % (11.5-14.5); WHITE BLOOD COUNT 9.8 X10'3 (4.5-11.0)
[2024-01-23 06:17] LABS: ALANINE AMINOTRANSFERASE 26 U/L (12-78); ALBUMIN/GLOBULIN RATIO 0.7 (1.1-1.5); ALKALINE PHOSPHATASE 59 IU/L (46-116); ANION GAP 9 (8-16); ASPARTATE AMINO TRANSFERASE 18 U/L (10-37); BILIRUBIN,TOTAL 0.7 MG/DL (0.1-1.0); BLOOD UREA NITROGEN 7 MG/DL (7-18); CALCIUM 8.6 MG/DL (8.5-10.1); CHLORIDE 105 MMOL/L (99-107); CREATININE 0.88 MG/DL (0.40-0.90); GLUCOSE 88 MG/DL (70-104); MAGNESIUM 1.9 MG/DL (1.5-2.4); POTASSIUM 3.7 MMOL/L (3.5-5.1); SODIUM 140 MMOL/L (135-145); TOTAL CARBON DIOXIDE 25.7 MMOL/L (24-32); TOTAL PROTEIN 7.5 G/DL (6.4-8.2); eCRCL 85 ML/MIN; eGFR 71 ML/MIN
[2024-01-23] MEDS: ondansetron/PF 4mg/2ml inj IV PRN ×2 (07:02→19:15)
[2024-01-23] MEDS ORDERED: iohexol 300mg/ml 100ml inj. ONE (10:04)
[2024-01-23] MEDS ORDERED: hydrALAZINE 20mg/ml inj. IV PRN (16:05)
[2024-01-23] MEDS ORDERED: meperidine/PF 25mg/ml syringe IV PRN ×2 (16:05)
[2024-01-23] MEDS ORDERED: labetalol 20mg/4ml (5mg/ml) syringe IV PRN (16:05)
[2024-01-23] MEDS ORDERED: morphine 2 MG/ML inj. syringe IV PRN (16:05)
[2024-01-23] MEDS ORDERED: fentaNYL/PF 50MCG/1 ML 2ML syringe ONE (16:58)
[2024-01-23] MEDS ORDERED: midazolam 1 mg/ML 2ml injection ONE (16:59)
[2024-01-23] MEDS: BUPIVAcaine 2.5mg/ml inj 50ml vial (contains preservative) ONE (17:38)
[2024-01-23] MEDS ORDERED: dexamethasone sod phosphate 4mg/ml inj. ONE (18:30)
[2024-01-23] MEDS ORDERED: propofol inj 20 ML IV ONE (18:30)
[2024-01-23] MEDS ORDERED: rocuronium 10mg/ml inj IV ONE (18:30)
[2024-01-23] MEDS ORDERED: ondansetron/PF 4mg/2ml inj ONE (18:43)
[2024-01-23] MEDS ORDERED: sugammadex 200mg/2ml injection IV ONE (18:44)
[2024-01-23] MEDS ORDERED: HYDROcodone/acetaminophen 5mg/325mg tablet PO PRN (18:55)
[2024-01-23] MEDS ORDERED: naloxone 0.4 mg/ml inj IV PRN (18:55)
[2024-01-23] MEDS ORDERED: ondansetron/PF 4mg/2ml inj IV PRN (18:55)
[2024-01-23] MEDS: acetaminophen 1,000mg/100ml IV 100 ML IV ONE (19:05)
[2024-01-23] MEDS: meperidine/PF 25mg/ml syringe IV PRN (19:06)
[2024-01-23] MEDS: morphine 4 MG/ML inj SYRINge IV PRN (19:56)
[2024-01-23] MEDS: ringers solution, lacted 1,000 ML IV SCH (20:06)
[2024-01-23] MEDS: ketorolac trometh. 30mg/ml inj. IV ONE (21:06)
[2024-01-24] VITALS (9 sets, daily range): BP systolic 116–134; BP diastolic 63–74; PULSE 74–99; RESP 16–20; TEMP 97–98.3; O2SAT 96–99
[2024-01-24 05:59] LABS: BASOPHILS % (AUTO) 0.2 % (0-1); EOSINOPHILS % (AUTO) 0 % (0-6); HEMATOCRIT 38.6 % (35.0-45.0); HEMOGLOBIN 12.9 g/dl (12.0-16.0); LYMPHOCYTES # (AUTO) 0.9 X10'3 (1.1-4.8); MEAN CORPUSCULAR HEMOGLOBIN 30.3 PG (27.0-31.0); MEAN CORPUSCULAR HGB CONC 33.3 g/dL (33.0-36.5); MEAN CORPUSCULAR VOLUME 90.8 FL (78-98); MEAN PLATELET VOLUME 10.2 FL (7.4-10.4); MONOCYTES # (AUTO) 0.3 X10'3 (0-0.9); MONOCYTES % (AUTO) 2.4 % (2-12); NEUTROPHILS % (AUTO) 89.4 % (42-75); PLATELET COUNT 327 X10'3 (140-440); RED BLOOD COUNT 4.26 X10'6 (4.20-5.60); RED CELL DISTRIBUTION WIDTH 13.1 % (11.5-14.5); WHITE BLOOD COUNT 11.2 X10'3 (4.5-11.0)
[2024-01-24 06:33] LABS: ALANINE AMINOTRANSFERASE 43 U/L (12-78); ALBUMIN 2.9 G/DL (3.4-5.0); ALBUMIN/GLOBULIN RATIO 0.7 (1.1-1.5); ALKALINE PHOSPHATASE 64 IU/L (46-116); ANION GAP 10 (8-16); ASPARTATE AMINO TRANSFERASE 43 U/L (10-37); BILIRUBIN,TOTAL 0.5 MG/DL (0.1-1.0); BLOOD UREA NITROGEN 7 MG/DL (7-18); BUN/CREATININE RATIO 8.1 (10.0-20.0); CALCIUM 8.3 MG/DL (8.5-10.1); CHLORIDE 102 MMOL/L (99-107); CREATININE 0.86 MG/DL (0.40-0.90); GLUCOSE 167 MG/DL (70-104); POTASSIUM 4.1 MMOL/L (3.5-5.1); SODIUM 136 MMOL/L (135-145); TOTAL CARBON DIOXIDE 24.2 MMOL/L (24-32); TOTAL PROTEIN 6.8 G/DL (6.4-8.2); eCRCL 87 ML/MIN; eGFR 73 ML/MIN
[2024-01-24] MEDS ORDERED: HYDR-3964 PO (16:24)
[2024-01-25 03:58] LABS: BASOPHILS # (AUTO) 0.1 X10'3 (0-0.2); BASOPHILS % (AUTO) 0.6 % (0-1); EOSINOPHILS % (AUTO) 0.2 % (0-6); HEMATOCRIT 34.4 % (35.0-45.0); HEMOGLOBIN 11.5 g/dl (12.0-16.0); LYMPHOCYTES # (AUTO) 5.5 X10'3 (1.1-4.8); LYMPHOCYTES % (AUTO) 37.2 % (21-51); MEAN CORPUSCULAR HEMOGLOBIN 30.3 PG (27.0-31.0); MEAN CORPUSCULAR HGB CONC 33.4 g/dL (33.0-36.5); MEAN CORPUSCULAR VOLUME 90.7 FL (78-98); MEAN PLATELET VOLUME 9.5 FL (7.4-10.4); MONOCYTES # (AUTO) 1.1 X10'3 (0-0.9); MONOCYTES % (AUTO) 7.6 % (2-12); NEUTROPHILS % (AUTO) 54.4 % (42-75); PLATELET COUNT 282 X10'3 (140-440); RED BLOOD COUNT 3.79 X10'6 (4.20-5.60); RED CELL DISTRIBUTION WIDTH 13.1 % (11.5-14.5); WHITE BLOOD COUNT 14.8 X10'3 (4.5-11.0)
[2024-01-25 04:03] LABS: ALANINE AMINOTRANSFERASE 50 U/L (12-78); ALBUMIN 2.6 G/DL (3.4-5.0); ALBUMIN/GLOBULIN RATIO 0.7 (1.1-1.5); ALKALINE PHOSPHATASE 50 IU/L (46-116); ANION GAP 7 (8-16); ASPARTATE AMINO TRANSFERASE 37 U/L (10-37); BILIRUBIN,TOTAL 0.5 MG/DL (0.1-1.0); BLOOD UREA NITROGEN 5 MG/DL (7-18); CALCIUM 8.1 MG/DL (8.5-10.1); CHLORIDE 107 MMOL/L (99-107); GLUCOSE 108 MG/DL (70-104); MAGNESIUM 1.7 MG/DL (1.5-2.4); POTASSIUM 3.6 MMOL/L (3.5-5.1); SODIUM 140 MMOL/L (135-145); TOTAL CARBON DIOXIDE 25.6 MMOL/L (24-32); TOTAL PROTEIN 6.6 G/DL (6.4-8.2); eCRCL 75 ML/MIN; eGFR 61 ML/MIN
[2024-01-25 07:29] VITALS: BP 129/75; PULSE 80; RESP 18; TEMP 97.6; O2SAT 95
[2024-01-25 07:45] VITALS: RESP 18; O2SAT 95
[2024-01-25 11:02] VITALS: BP 130/79; PULSE 77; RESP 16; TEMP 98.2; O2SAT 97
[2024-01-25 18:00] VITALS: BP 118/70; PULSE 94; RESP 20; TEMP 98; O2SAT 99
[2024-01-25 20:00] VITALS: RESP 18
[2024-01-25 22:00] VITALS: BP 129/70; PULSE 85; RESP 19; TEMP 97.7; O2SAT 95
[2024-01-26 06:00] VITALS: BP 120/70; PULSE 77; RESP 18; TEMP 97.2; O2SAT 97
[2024-01-26 06:03] LABS: BASOPHILS % (AUTO) 0.2 % (0-1); EOSINOPHILS # (AUTO) 0.1 X10'3 (0-0.9); EOSINOPHILS % (AUTO) 1.3 % (0-6); HEMATOCRIT 35.8 % (35.0-45.0); HEMOGLOBIN 11.7 g/dl (12.0-16.0); LYMPHOCYTES # (AUTO) 5.4 X10'3 (1.1-4.8); LYMPHOCYTES % (AUTO) 44.9 % (21-51); MEAN CORPUSCULAR HEMOGLOBIN 29.7 PG (27.0-31.0); MEAN CORPUSCULAR HGB CONC 32.7 g/dL (33.0-36.5); MEAN CORPUSCULAR VOLUME 90.9 FL (78-98); MEAN PLATELET VOLUME 10.1 FL (7.4-10.4); MONOCYTES # (AUTO) 1.3 X10'3 (0-0.9); MONOCYTES % (AUTO) 10.6 % (2-12); NEUTROPHILS # (AUTO) 5.1 X10'3 (1.8-7.7); PLATELET COUNT 280 X10'3 (140-440); RED BLOOD COUNT 3.93 X10'6 (4.20-5.60); RED CELL DISTRIBUTION WIDTH 13.1 % (11.5-14.5); WHITE BLOOD COUNT 11.9 X10'3 (4.5-11.0)
[2024-01-26 06:14] LABS: ALANINE AMINOTRANSFERASE 52 U/L (12-78); ALBUMIN 2.5 G/DL (3.4-5.0); ALBUMIN/GLOBULIN RATIO 0.7 (1.1-1.5); ALKALINE PHOSPHATASE 60 IU/L (46-116); ANION GAP 6 (8-16); ASPARTATE AMINO TRANSFERASE 33 U/L (10-37); BILIRUBIN,TOTAL 0.9 MG/DL (0.1-1.0); BLOOD UREA NITROGEN 5 MG/DL (7-18); CALCIUM 8.3 MG/DL (8.5-10.1); CHLORIDE 106 MMOL/L (99-107); CREATININE 1.01 MG/DL (0.40-0.90); GLUCOSE 92 MG/DL (70-104); MAGNESIUM 1.7 MG/DL (1.5-2.4); POTASSIUM 3.6 MMOL/L (3.5-5.1); SODIUM 138 MMOL/L (135-145); TOTAL CARBON DIOXIDE 26.3 MMOL/L (24-32); TOTAL PROTEIN 5.9 G/DL (6.4-8.2); eCRCL 74 ML/MIN; eGFR 60 ML/MIN
[2024-01-26 11:56] VITALS: RESP 16
[2024-01-26] MEDS ORDERED: baclofen 10mg tablet PO PRN (12:10)
[2024-01-26 13:52] VITALS: RESP 16
== END 2024-01-26 15:45 | disposition home or self-care (01) | DRG 263 ==
LOC: ER 09:46 → ED HOLD 13:29 → SUR 3N 18:35
PROVIDERS: ADMIT Internal Medicine; ATTEND Internal Medicine
PROC: 8E0W4CZ Robotic Assisted Procedure of Trunk Region, Percutaneous Endoscopic Approach (ICD-10-PCS; 2024-01-23)
PROC: 0FN44ZZ Release Gallbladder, Percutaneous Endoscopic Approach (ICD-10-PCS; 2024-01-23)
PROC: BW211ZZ Computerized Tomography (CT Scan) of Abdomen and Pelvis using Low Osmolar Contrast (ICD-10-PCS; 2024-01-23)
PROC: 0FT44ZZ Resection of Gallbladder, Percutaneous Endoscopic Approach (ICD-10-PCS; principal; 2024-01-23 16:51)
DX: K80.12 Calculus of gallbladder with acute and chronic cholecystitis without obstruction (principal); F17.200 Nicotine dependence, unspecified, uncomplicated; K66.0 Peritoneal adhesions (postprocedural) (postinfection); K82.8 Other specified diseases of gallbladder; Z86.711 Personal history of pulmonary embolism; Z87.442 Personal history of urinary calculi; Z90.5 Acquired absence of kidney; Z90.81 Acquired absence of spleen; Z88.0 Allergy status to penicillin; Z91.040 Latex allergy status; Z88.8 Allergy status to other drugs, medicaments and biological substances; Z90.710 Acquired absence of both cervix and uterus
CPT/HCPCS: 36415; 74178; 76700; 80053; 81001; 81025; 82948; 83690; 83735; 85025; 87081; 99285; A4215; A4314; A4615; A4618; A6258; A6449; A7000; G0378; J0131; J1100; J1644; J1885; J2175; J2250; J2270; J2405; J2543; J2704; J3010; J3490; J7030; J7120; Q9963; Q9967

== ENCOUNTER 2024-04-12 09:07 | Emergency (ER) | payer MEDICAID ==
[~2024-04-12] VITALS: Ht 172.7 cm; Wt 81.8 kg
[~2024-04-12 09:07] MED LIST changes: -ALBU6.7H14 INH; -BUDE180A INH; +HYDR-3964 PO; -ONDA4TAB6 PO
[2024-04-12 09:19] VITALS: TEMP 97.7
[2024-04-12 09:42] LABS: BASOPHILS # (AUTO) 0.1 X10'3 (0-0.2); EOSINOPHILS # (AUTO) 0.2 X10'3 (0-0.9); HEMATOCRIT 41.8 % (35.0-45.0); HEMOGLOBIN 14.1 g/dl (12.0-16.0); LYMPHOCYTES # (AUTO) 3.6 X10'3 (1.1-4.8); LYMPHOCYTES % (AUTO) 36.5 % (21-51); MEAN CORPUSCULAR HEMOGLOBIN 30.8 PG (27.0-31.0); MEAN CORPUSCULAR HGB CONC 33.8 g/dL (33.0-36.5); MEAN CORPUSCULAR VOLUME 91.2 FL (78-98); MONOCYTES # (AUTO) 0.9 X10'3 (0-0.9); NEUTROPHILS # (AUTO) 5.1 X10'3 (1.8-7.7); NEUTROPHILS % (AUTO) 51.5 % (42-75); PLATELET COUNT 371 X10'3 (140-440); RED BLOOD COUNT 4.58 X10'6 (4.20-5.60); RED CELL DISTRIBUTION WIDTH 13.6 % (11.5-14.5)
[2024-04-12 09:47] LABS: URINE HCG NEGATIVE (NEG)
[2024-04-12 09:51] LABS: BILIRUBIN,URINE NEGATIVE (Neg); CLARITY,URINE SLIGHTLY CLOUDY (Clear); COLOR,URINE YELLOW (Yellow); GLUCOSE, URINE NEGATIVE (Neg); KETONES,URINE NEGATIVE (Neg); LEUKOCYTE ESTERASE ,URINE NEGATIVE (Neg); NITRITES, URINE NEGATIVE (Neg); OCCULT BLOOD,URINE SMALL (Neg); PROTEIN,URINE NEGATIVE (Neg); UROBILINOGEN,URINE 0.2 E.U/dL (0.2-1.0)
[2024-04-12 09:56] LABS: UA COLLECTION TYPE CLN CATCH MIDSTREAM
[2024-04-12 09:57] LABS: MUCUS STRANDS FEW /LPF (Neg); SQUAMOUS EPITHELIAL CELL,UR MANY /LPF (FEW)
[2024-04-12 09:57] LABS: ALANINE AMINOTRANSFERASE 29 U/L (12-78); ALBUMIN 3.7 G/DL (3.4-5.0); ALBUMIN/GLOBULIN RATIO 0.9 (1.1-1.5); ALKALINE PHOSPHATASE 76 IU/L (46-116); ANION GAP 6 (8-16); ASPARTATE AMINO TRANSFERASE 19 U/L (10-37); BILIRUBIN,TOTAL 0.3 MG/DL (0.1-1.0); BLOOD UREA NITROGEN 12 MG/DL (7-18); BUN/CREATININE RATIO 17.6 (10.0-20.0); CHLORIDE 103 MMOL/L (99-107); CREATININE 0.68 MG/DL (0.40-0.90); GLUCOSE 107 MG/DL (70-104); LIPASE 64 U/L (16-77); SODIUM 136 MMOL/L (135-145); TOTAL CARBON DIOXIDE 26.6 MMOL/L (24-32); TOTAL PROTEIN 7.9 G/DL (6.4-8.2); eCRCL 110 ML/MIN; eGFR > 90 ML/MIN
[2024-04-12 09:58] LABS: SPERM FEW /HPF
[2024-04-12 10:00] LABS: WBC,URINE 0-4 /HPF (0-4); YEAST FEW /HPF (NEGATIVE)
[2024-04-12 10:01] LABS: BACTERIA,URINE FEW /HPF (Neg)
[2024-04-12] MEDS: ketorolac trometh 30MG/ML vial 30 MG/ML VIAL IM ONE (11:06)
[2024-04-12 11:10] VITALS: O2SAT 96
[2024-04-12 11:57] VITALS: BP 136/75; PULSE 88; RESP 14
== END 2024-04-12 11:58 | disposition home or self-care (01) ==
LOC: MERGE 09:07 → ER 09:07
DX: N23 Unspecified renal colic (principal); N20.0 Calculus of kidney; Z88.0 Allergy status to penicillin; Z91.040 Latex allergy status; Z79.899 Other long term (current) drug therapy; Z79.1 Long term (current) use of non-steroidal anti-inflammatories (NSAID); Z79.52 Long term (current) use of systemic steroids
CPT/HCPCS: 36415; 76770; 80053; 81001; 81025; 83690; 85025; 96372; 99285; J1885

== ENCOUNTER 2024-09-21 11:59 | Emergency (ER) | payer MEDICAID | END 2024-09-21 13:37 | disposition left against medical advice (07) | LOC: ER 12:00 | DX: Z00.00 Encounter for general adult medical examination without abnormal findings (principal); Z53.21 Procedure and treatment not carried out due to patient leaving prior to being seen by health care provider; Z88.0 Allergy status to penicillin; Z91.040 Latex allergy status ==

== ENCOUNTER 2025-03-28 08:57 | Emergency (ER) | payer MEDICAID ==
[~2025-03-28] VITALS: Ht 172.7 cm; Wt 87.2 kg
[2025-03-28 09:11] VITALS: BP 142/82; PULSE 95; TEMP 97.1; O2SAT 98
[2025-03-28] MEDS ORDERED: SUMA50TA PO (11:20)
[2025-03-28] MEDS ORDERED: IBUP-1986 PO (11:20)
[2025-03-28] MEDS ORDERED: ACET-1025 PO (11:20)
--- NOTE | 2025-03-28 11:20 | Physician Documentation ---
History of Present Illness ~ Chief Complaint: Headache Stated Complaint: HEADACHE Time Seen by MD: 09:53 Primary Medical Doctor: DR [facility] HPI Patient is seen today with complaints of progressively worsening headache that started out as a right-sided headache and now encompasses her entire parietal area. Patient admits to visual aura and sensitivity to light and sound as well as nausea and vomiting but no diarrhea and denies chest pain or shortness of breath or fever or chills or abdominal pain. Patient denies previous history of migraine headaches. She has no other concern or complaint at this time Medication Reconciliation Allergies: Coded Allergies: Penicillins (Verified Allergy, Severe, HIVES,BREATHING ISSUE, 03/28/25) latex (Verified Allergy, Unknown, HIVES, 03/28/25) Scheduled Cyclobenzaprine* (Cyclobenzaprine*), 1 TAB PO Q8H Famotidine (Pepcid), 1 TABLET PO DAILY Ibuprofen (Ibuprofen), 1 TAB PO Q8H Methylprednisolone (Medrol Dosepak), 1 PACKET PO UD Scheduled PRN Hydrocodone Bit/Acetaminophen (Hydrocodon-Acetaminophen 5-325), 1 TAB PO Q4H PRN for MODERATE PAIN 4-6 ONDANSETRON ODT 4mg tablet (Ondansetron Odt), 1 TABLET PO Q6H PRN for nausea/vomiting Miscellaneous Medications Home Med List (No Home Medications), (Reported) Past Medical History Past Medical History: *CARDIOVASCULAR*, Pneumonia, Pulmonary Embolism, Kidney Stones, UTI Past Surgical History: other Other Past Surgical History: Chest tube placed, splenectomy, left nephrectomy Alcohol Use: None Drug Use: other Lives with: Family Lives In: Home Review of Systems Constitutional: Denies: chills, fever, weakness Eyes: Denies: pain, blurred vision ENT: Denies: ear pain, nose pain, throat pain, mouth pain Respiratory: Denies: cough, shortness of breath Cardiovascular: Denies: chest pain, palpitations Gastrointestinal: Denies: abdominal pain, nausea, vomiting Genitourinary: Denies: burning, dysuria Female Genitalia: Denies: vaginal discharge, pelvic pain Neurological: Denies: headache, dizziness Musculoskeletal: Denies: pain, swelling Integumentary: Denies: rash, lesions Allergic/Immunologic: Denies: hives, itching Hematologic/Lymphatic: Denies: no symptoms reported Psychiatric: Denies: depression, anxiety Physical Exam Vital Signs: Temperature: 97.1, Source: Temporal, Heart Rate: 95, Respiratory Rate: 18, BP: 142/82, Pulse Oximetry: 98, Weight: 87.200 Oxygen Flow Rate: 0 Physical Exam General: Awake and Alert, no acute distress. HEENT: Conjunctiva pink, Sclera clear, Mucus Membranes moist. Neck: Supple without masses and tenderness. Resp: Unlabored. Lungs clear to auscultation bilaterally. Heart: Regular Rate and rhythm, normal S1 and S2 without murmur, rub or gallop. Abdomen: Soft and non tender no organomegaly Extremities: No cyanosis,clubbing or edema. Skin: Warm and Dry. Progress Results/Orders Results/Orders Orders - ROSA SY PAC Saline Lock (03/28/25 ) Normal Saline 1,000ml Iv Bolus (03/28/25 11:12) Ketorolac Trometh 30mg/Ml Vial (Toradol (03/28/25 11:12) Acetaminophen 1,000mg/100ml Iv (Ofirmev (03/28/25 11:12) Prochlorperazine Inj (Compazine Inj) (03/28/25 11:12) Diphenhydramine Inj (Benadryl Inj.) (03/28/25 11:12) Vital Signs 03/28/25 09:11 Temp 97.1 Pulse 95 Resp 18 B/P (MAP) 142/82 Pulse Ox 98 O2 Flow Rate 0 Medical Decision Making Findings Patient is seen today with complaints of progressively worsening headache that started out as a right-sided headache and now encompasses her entire parietal area. Patient admits to visual aura and sensitivity to light and sound as well as nausea and vomiting but no diarrhea and denies chest pain or shortness of breath or fever or chills or abdominal pain. Patient denies previous history of migraine headaches. She has no other concern or complaint at this time Patient was given 1 L normal saline IV, 30 mg Toradol IV, acetaminophen a 1000 mg IV, Compazine 10 mg IV, Benadryl 50 mg IV. Patient is feeling much better and was discharged home. Patient will follow up with primary care in 2-5 days if no better as needed sooner. Return to ED with any worsening, concerning or changing symptoms. Departure Disposition: 01 HOME / SELF CARE / HOMELESS Impression: Primary Impression: Migraine Qualified Codes: G43.109 - Migraine with aura, not intractable, without status migrainosus Condition: Improved Discharge Instructions: Migraine Headache Additional Instructions: Patient was given 1 L normal saline IV, 30 mg Toradol IV, acetaminophen a 1000 mg IV, Compazine 10 mg IV, Benadryl 50 mg IV. Patient is feeling much better and was discharged home. Patient will follow up with primary care in 2-5 days if no better as needed sooner. Return to ED with any worsening, concerning or changing symptoms. Referrals: NO PRIMARY CARE PROVIDER (PCP) Prescriptions Acetaminophen (Tylenol Extra Strength) 500 Mg Tablet 2 TAB PO Q6H PRN PRN for pain or fever for 7 Days, #56 TAB Prov: ROSA SY 03/28/25 Ibuprofen (Ibuprofen) 800 Mg Tablet 1 TAB PO Q8H for pain for 10 Days, #30 TAB 0 Refills Prov: ROSA SY 03/28/25 Sumatriptan Succinate* (Imitrex*) 50 Mg Tablet 1 TAB PO UD for headache for 30 Days, #9 TAB Prov: ROSA SY 03/28/25 Signature Scribe Signature: No scribe Attestation: No scribe ROSA SY Mar 28, 2025 11:20
[2025-03-28] MEDS: normal saline 1000ml 1,000 ML IV STA (12:04)
[2025-03-28 12:26] VITALS: RESP 16
[2025-03-28] MEDS: acetaminophen 1,000mg/100ml IV 100 ML IV STA (12:26)
[2025-03-28] MEDS: ketorolac trometh 30MG/ML vial 30 MG/ML VIAL IV STA (12:26)
== END 2025-03-28 12:55 | disposition home or self-care (01) ==
LOC: ER 08:57
DX: G43.109 Migraine with aura, not intractable, without status migrainosus (principal); Z86.711 Personal history of pulmonary embolism; Z88.0 Allergy status to penicillin; Z91.040 Latex allergy status; Z87.442 Personal history of urinary calculi; Z87.440 Personal history of urinary (tract) infections; Z79.899 Other long term (current) drug therapy; Z90.81 Acquired absence of spleen; Z90.5 Acquired absence of kidney
CPT/HCPCS: 96374; 96375; 99284; J0131; J0780; J1200; J1885; J7030

== ENCOUNTER 2025-05-28 10:26 | Emergency (ER) | payer MEDICAID ==
[~2025-05-28] VITALS: Ht 172.7 cm; Wt 84.2 kg
[2025-05-28] MEDS ORDERED: OMEP40CA21 PO (12:53)
[2025-05-28] MEDS ORDERED: PREG25CA19 PO (12:53)
[2025-05-28] MEDS ORDERED: TOPI-255 PO (12:53)
[2025-05-28] MEDS ORDERED: LINA72CA PO (12:53)
[2025-05-28] MEDS ORDERED: METH-798 (12:55)
[2025-05-28] MEDS ORDERED: PANT20TA18 PO (12:55)
--- NOTE | 2025-05-28 13:43 | Physician Documentation ---
History of Present Illness ~ Chief Complaint: Dizziness Stated Complaint: MEDICATION COMPLICATION Time Seen by MD: 12:41 Primary Medical Doctor: larry Mode of Arrival: POV HPI This is a 44-year-old female who presents with a feeling of dizziness and imbalance when walking or changing positions, patient reports symptoms are not present at rest however are triggered when standing from sitting or when she walks, patient reports symptoms has been present since May 15 when she started Topamax for migraines, patient reports that she stopped taking the medication five days ago and symptoms have not resolved. Patient reports she has had recent diarrhea without vomiting though does report feeling nauseous. Patient reports she has not had any migraine symptoms recently. Patient reports no other acute symptoms or concerns. Medication Reconciliation Allergies: Coded Allergies: Penicillins (Verified Allergy, Severe, HIVES,BREATHING ISSUE, 03/28/25) latex (Verified Allergy, Unknown, HIVES, 03/28/25) Scheduled Cephalexin*Monohydrate* (Keflex*), 1 CAP PO QID Famotidine (Pepcid), 1 TABLET PO DAILY Ibuprofen (Ibuprofen), 1 TAB PO Q8H Linaclotide (Linzess), 1 CAP PO QAM, (Reported) Pantoprazole Sodium (Protonix), 1 TAB PO BID, (Reported) Pregabalin (Pregabalin), 1 CAP PO TID, (Reported) Topiramate (Topiramate), 1 TAB PO DAILY, (Reported) Scheduled PRN ONDANSETRON ODT 4mg tablet (Ondansetron Odt), 1 TABLET PO Q6H PRN for nausea/vomiting Miscellaneous Medications Methocarbamol (Methocarbamol), (Reported) Discontinued Medications Cyclobenzaprine* (Cyclobenzaprine*), 1 TAB PO Q8H Discontinued Reason: patient no longer taking Home Med List (No Home Medications), (Reported) Discontinued Reason: patient no longer taking Hydrocodone Bit/Acetaminophen (Hydrocodon-Acetaminophen 5-325), 1 TAB PO Q4H PRN for MODERATE PAIN 4-6 Discontinued Reason: patient no longer taking Ibuprofen (Ibuprofen), 1 TAB PO Q8H Discontinued Reason: patient no longer taking Methylprednisolone (Medrol Dosepak), 1 PACKET PO UD Discontinued Reason: patient no longer taking Omeprazole (Prilosec), 1 CAP PO DAILY, (Reported) Discontinued Reason: patient no longer taking Past Medical History Past Medical History: *CARDIOVASCULAR*, Pneumonia, Pulmonary Embolism, Kidney Stones, UTI Past Surgical History: other Other Past Surgical History: Chest tube placed, splenectomy, left nephrectomy Alcohol Use: None Drug Use: other Lives with: Family Lives In: Home Review of Systems ROS As stated above in the HPI, otherwise all systems are reviewed and negative. Physical Exam Vital Signs: Temperature: 98.0, Source: Temporal, Heart Rate: 87, Respiratory Rate: 17, BP: 160/94, Pulse Oximetry: 96, Weight: 84.200 Oxygen Flow Rate: 0 Physical Exam VITALS: Reviewed and as above. GENERAL: Alert, nontoxic appearing, no apparent distress. HEENT: PERRLA, EOMI, no nystagmus, RESPIRATORY: No increased work of breathing, no respiratory distress, speaking in full clear sentences, clear lung sounds in all fisher CV: Regular rate and rhythm no murmur GI: Soft nontender NEURO: No focal motor weakness, negative Romberg, intact rapid alternating motion including [id number], speech clear, no facial droop, no focal sensory deficit Progress Results/Orders Results/Orders Orders - JUDITH MUNSON SWINGING CUT OFF SAW OPERATOR Cult Urine + [place] [address] (05/28/25 16:26) Completed Orders - JUDITH MUNSON SWINGING CUT OFF SAW OPERATOR Stat Ekg (05/28/25 13:39) Cbc/Diff (05/28/25 13:39) BMP (05/28/25 13:39) Hcg, Ur Ql (05/28/25 15:37) Ua W/Microscopic, Cult If Ind (05/28/25 15:51) Cephalexin Capsule (Keflex Capsule) (05/28/25 16:50) Medications Received in ER Medications (Trade) Dose Ordered Sig/Elis Route PRN Reason Start Time Stop Time Status Last Admin Dose Admin (Keflex capsule) 500 mg ONCE ONCE PO 05/28/25 16:50 05/28/25 16:51 DC 05/28/25 16:56 500 MG Vital Signs 05/28/25 05/28/25 05/28/25 05/28/25 10:35 12:45 12:58 13:50 Temp 98.0 Pulse 103 86 87 87 86 102 Resp B/P (MAP) 141/87 139/88 160/94 (116) 132/88 (103) 148/84 135/97 Pulse Ox 96 96 97 O2 Flow Rate 0 05/28/25 05/28/25 16:57 17:20 Temp 98.0 Pulse 85 87 Resp 13 19 B/P (MAP) 135/88 (104) 122/84 Laboratory Tests Test 05/28/25 13:48 05/28/25 15:51 White Blood Count 16.8 H Red Blood Count 4.37 Hemoglobin 13.2 Hematocrit 39.3 Mean Corpuscular Volume 90.1 Mean Corpuscular Hemoglobin 30.2 Mean Corpuscular Hemoglobin Concent 33.5 Red Cell Distribution Width 13.5 Platelet Count 322 Mean Platelet Volume 9.0 Neutrophils (%) (Auto) 68.0 Lymphocytes (%) (Auto) 23.0 Monocytes (%) (Auto) 7.4 Eosinophils (%) (Auto) 0.6 Basophils (%) (Auto) 1.0 Neutrophils # (Auto) 11.4 H Lymphocytes # (Auto) 3.9 Monocytes # (Auto) 1.3 H Eosinophils # (Auto) 0.1 Basophils # (Auto) 0.2 CBC Comment Sodium Level 141 Potassium Level 3.7 Chloride Level 104 Carbon Dioxide Level 27.4 Anion Gap 10 Blood Urea Nitrogen 8 Creatinine 0.93 H Estimated GFR/1.73 m2 66 BUN/Creatinine Ratio 8.6 L Glucose Level 94 Calcium Level 8.8 Albumin 3.5 Chemistry Comments Urine Specimen Description Cln catch midstream Urine Color Yellow Urine Clarity Cloudy Urine pH 6.0 Urine Specific [place] 1.010 Urine Protein Negative Urine Glucose (UA) Negative Urine Ketones Negative Urine Occult Blood Small Urine Nitrite Negative Urine Bilirubin Negative Urine Urobilinogen 0.2 Urine Leukocyte Esterase Small H Urine RBC 3-10 Urine WBC 10-20 H Urine Squamous Epithelial Cells Few Urine Bacteria 2+ Urine Culture Indicated Indicated Volume Urine Centrifuged 10 ml Urine HCG, Qualitative Negative Urine Comment Microbiology Date/Time Source Procedure Growth Status 05/28/25 16:26 Urine Clean Catch Midstream Urine Culture - Preliminary Culture received. Resulted EKG/XRAY/CT/US/VASC/MRI EKG : Additional Comment EKG at 1352 interpreted by myself as: Sinus rhythm at a rate of 71, normal axis, no ST segment elevation or depression Medical Decision Making Additional information obtaine: N/A Findings This is a 44-year-old female who presented with a feeling of imbalance when changing positions and walking, symptoms were not present at rest. Physical exam was reassuring with no focal neuro deficits and negative Romberg, vital signs significant for tachycardia present when patient was standing though not present when walking or lying down which is positive for possible orthostatic hypotension, given onset of symptoms corresponding with new medication I do suspect symptoms are likely related to this new medication, additionally lab work demonstrated urinary tract infection otherwise labs without significant abnormality. Patient is otherwise well-appearing and hemodynamically stable appropriate for outpatient follow up. It is reassuring patient has prompt follow up with primary care provider in the next few days. Patient discharged on course of oral antibiotics for UTI. Patient provided careful return to care precautions, follow up instructions, and home care instructions which she verbalized understanding of. Differential Dx:Considerations: Include: anemia, CVA, dehydration, dysrhythmia, electrolyte imbalance, hypoglycemia, hypotension, hypovolemia, labyrinthitis, myocardial infarction, pulmonary embolus, TIA, VBI, vertigo central, vertigo peripheral, vestibular neuronitis Departure Time of Disposition: 17:00 Impression: Primary Impression: Urinary tract infection Qualified Codes: N30.00 - Acute cystitis without hematuria Additional Impression: Orthostatic hypotension Condition: Improved Discharge Instructions: Orthostatic Hypotension, Urinary Tract Infection, Adult Additional Instructions: Please see the attached home care instructions about orthostatic hypotension which I believe is related to your new medications. We also found you to have a urinary tract infection, please take the antibiotics as prescribed. Stay well hydrated. Please follow up with your primary care provider in the next few days. Please return to the emergency department for any new or worsening concerning symptoms. Referrals: NO PRIMARY CARE PROVIDER (PCP) Prescriptions Cephalexin*Monohydrate* (Keflex*) 500 Mg Capsule 1 CAP PO QID for 7 Days, #28 CAP Prov: JUDITH MUNSON 05/28/25 Education Educated: Patient Educated regarding: diagnosis, treatment, prognosis, need for follow up Signature Scribe Signature: No scribe Attestation: The note accurately reflects work and decisions made by me.KAMRAN Carey 05/28/25 23:30 JUDITH MUNSON May 28, 2025 13:42
[2025-05-28 13:50] VITALS: O2SAT 97
--- NOTE | 2025-05-28 13:54 | ELECTROCARDIOGRAPH REPORT ---
[facility] Test Date: 2025-05-28 Test Time: 13:52:00 Pat Name: LINCOLN PHOENIX Department: [facility]- Patient ID: [id number] Room: Gender: F Mobility Developer: : 1980 Requested By: JUDITH MUNSON Order Number: [id number] Reading MD: Dr. TREVER Mendoza Measurements Intervals [place] Rate: 71 P: 61 MO: 159 QRS: 54 QRSD: 84 T: 35 QT: 411 QTc: 447 Interpretive Statements Sinus rhythm Probable left atrial enlargement Low voltage, precordial leads Baseline wander in lead(s) II,III,aVR,aVL,aVF,V1,V2,V3,V4,V5,V6 Electronically Signed On 05-29-2025 17:27:[address] TREVER Mendoza Please click the below link to view image of tracing.
[2025-05-28 13:59] LABS: MEAN PLATELET VOLUME 9.0 FL (7.4-10.4); RED CELL DISTRIBUTION WIDTH 13.5 % (11.5-14.5)
[2025-05-28 14:08] LABS: TOTAL CARBON DIOXIDE 27.4 MMOL/L (24-32)
[2025-05-28 14:25] LABS: CREATININE 0.93 MG/DL (0.40-0.90); eCRCL 79 ML/MIN; eGFR 66 ML/MIN
[2025-05-28 16:04] LABS: URINE HCG NEGATIVE (NEG)
[2025-05-28 16:17] LABS: LEUKOCYTE ESTERASE ,URINE SMALL (Neg); NITRITES, URINE NEGATIVE (Neg); OCCULT BLOOD,URINE SMALL (Neg)
[2025-05-28 16:19] LABS: UA COLLECTION TYPE CLN CATCH MIDSTREAM
[2025-05-28 16:25] LABS: SQUAMOUS EPITHELIAL CELL,UR FEW /LPF (FEW)
[2025-05-28] MEDS ORDERED: CEPH-585 PO (17:00)
[2025-05-28 17:20] VITALS: BP 122/84; PULSE 87; RESP 19; TEMP 98
== END 2025-05-28 17:20 | disposition home or self-care (01) ==
LOC: ER 10:26
DX: N39.0 Urinary tract infection, site not specified (principal); I95.1 Orthostatic hypotension; G43.909 Migraine, unspecified, not intractable, without status migrainosus; Z88.0 Allergy status to penicillin; Z90.5 Acquired absence of kidney; Z90.81 Acquired absence of spleen; Z91.040 Latex allergy status
CPT/HCPCS: 36415; 80048; 81001; 81025; 85025; 87088; 93005; 99285; J7040; 87077; 87186

== ENCOUNTER 2025-05-30 09:53 | Outpatient (CLI) | payer MEDICAID ==
[~2025-05-30 09:53] MED LIST changes: +CEPH-585 PO; -CYCL-1 PO; -HYDR-3964 PO; +LINA72CA PO; +METH-798; -METH4TAB81 PO; -NO HOME MEDS; +PANT20TA18 PO; +PREG25CA19 PO; +TOPI-255 PO
--- NOTE | 2025-05-30 12:08 | RADIOLOGY REPORT ---
PROCEDURE: MRI OF THE BRAIN WITHOUT CONTRAST. CLINICAL INDICATION: MIGRAINE, UNSP, NOT INTRACTABLE, WITHOUT STATUS MIGRAINOSUS TECHNIQUE: Multiplanar, multi sequence MRI of the brain was performed without intravenous contrast. COMPARISON: None FINDINGS: There are a few punctate T2/FLAIR hyperintensities in the right cerebral hemisphere for example in the right frontal lobe. The signal characteristics of the brain parenchyma is otherwise within normal limits. There are no areas of restricted diffusion to suggest acute infarct. No evidence of space occupying mass lesion, extra-axial collections or hemorrhage is noted. The ventricles, sulci and basal cisterns are intact. There is no signal abnormality in the posterior fossa. The paranasal sinuses and mastoid air cells are well pneumatized. The orbits and nasopharynx are intact. The osseous structures are intact. The vessels of the skull base demonstrate signal void consistent with patency. IMPRESSION: 1. No acute intracranial abnormality. 2. A few punctate T2/FLAIR hyperintensities in the right cerebral hemisphere which may represent sequela of chronic migraine headaches, chronic small vessel ischemic white matter disease, ADEM, vasculitis or demyelinating disease.
== END 2025-05-30 23:59 | disposition home or self-care (01) ==
LOC: MRI02 09:53
PROVIDERS: ATTEND Student in an Organized Health Care Education/Training Program
DX: G43.909 Migraine, unspecified, not intractable, without status migrainosus (principal); R90.82 White matter disease, unspecified; I67.89 Other cerebrovascular disease
CPT/HCPCS: 70551